=== PATIENT | male | born 1965 | race African-American/Black ===

== ENCOUNTER 2017-03-27 23:41 | Emergency (ER) | payer MEDICARE ==
[~2017-03-27] VITALS: Ht 190.5 cm; Wt 109.0 kg
[~2017-03-27 23:41] MED LIST: BENADRYL; CITA20TA19 PO; DILAUDID; SEROQUEL; TEMA30CA5 PO; VALIUM
[2017-03-28] MEDS ORDERED: TRAMADOL 50MG TABLET PO ONE (02:45)
[2017-03-28 04:46] LABS: BASOPHILS % 0.4 % (0.0-2.0); EOSINOPHILS % 1.8 % (0.0-5.0); HEMOGLOBIN. 15.1 g/dL (14.0-18.0); LYMPHOCYTES % 23.9 % (20.0-50.0); MEAN CORPUSCULAR HEMOGLOBIN 30.2 pg (28.0-32.0); MEAN CORPUSCULAR VOLUME 90.2 fL (80.0-94.0); MEAN PLATELET VOLUME 7.9 fl (7.4-10.4); MONOCYTES % 10.9 % (2.0-8.0); PLATELET 154 x1000/uL (130-400); RED BLOOD CELL COUNT 4.99 mill/uL (4.7-6.1); RED CELL DISTRIBUTION WIDTH 13.7 % (11.6-14.6)
[2017-03-28 04:53] LABS: CHLORIDE 108 mEq/L (98-107)
[2017-03-28 05:02] LABS: CARBON DIOXIDE 29 mEq/L (21-32); ETHANOL BLOOD < 10 mg/dL
[2017-03-28 05:15] LABS: CLARITY URINE CLEAR (CLEAR); COLOR URINE YELLOW (YELLOW); GLUCOSE URINE NEGATIVE (NEGATIVE); KETONES URINE NEGATIVE (NEGATIVE); LEUKOCYTE ESTERASE URINE NEGATIVE (NEGATIVE); NITRITE URINE NEGATIVE (NEGATIVE); OCCULT BLOOD URINE NEGATIVE (NEGATIVE); PH URINE 5.5 (4.5-8.0); PROTEIN URINE NEGATIVE (NEGATIVE); SPECIFIC GRAVITY URINE 1.022 (1.005-1.030)
[2017-03-28 05:37] LABS: *AMPHETAMINES SCREEN URINE NEGATIVE (NEGATIVE); *BARBITURATES SCREEN URINE NEGATIVE (NEGATIVE); *BENZODIAZEPINES SCREEN URINE PRESUMTIVE POSITIVE (NEGATIVE); *COCAINE SCREEN URINE NEGATIVE (NEGATIVE); CANNABINOID URINE SCREEN PRESUMTIVE POSITIVE (NEGATIVE); METHADONE URINE SCREEN NEGATIVE (NEGATIVE); OPIATES URINE SCREEN PRESUMTIVE POSITIVE (NEGATIVE); PHENCYCLIDINE URINE SCREEN NEGATIVE (NEGATIVE)
[2017-03-28] MEDS ORDERED: ACETAMINOPHEN 500MG TABLET PO ONE (14:15)
[2017-03-28] MEDS ORDERED: ACETAMINOPHEN 500MG TABLET PO NR (22:50)
[2017-03-29] MEDS ORDERED: HYDROCODONE/ACETAMINOPHEN 5/325MG TABLET PO ONE (08:00)
[2017-03-29 16:10] VITALS: BP 121/69
== END 2017-03-29 18:49 | disposition home or self-care (01) ==
LOC: ER 03-28 04:14
DX: J06.9 Acute upper respiratory infection, unspecified (principal); R44.0 Auditory hallucinations; G89.29 Other chronic pain; M25.551 Pain in right hip; F25.9 Schizoaffective disorder, unspecified; F17.200 Nicotine dependence, unspecified, uncomplicated; F12.10 Cannabis abuse, uncomplicated; Z96.641 Presence of right artificial hip joint; Z88.0 Allergy status to penicillin; Z98.890 Other specified postprocedural states; Z88.6 Allergy status to analgesic agent; Z88.8 Allergy status to other drugs, medicaments and biological substances
CPT/HCPCS: 36415; 71010; 73502; 80053; 80305; 80307; 80329; 81003; 85025; 99285; G0482

== ENCOUNTER 2017-10-10 21:49 | Emergency (ER) | payer MEDICARE, MEDICAID ==
[~2017-10-10] VITALS: Ht 190.5 cm; Wt 106.0 kg
[2017-10-11] MEDS ORDERED: HYDROCODONE/ACETAMINOPHEN 10/325MG TABLET PO ONE (09:00)
[2017-10-11 10:04] VITALS: BP 121/64
== END 2017-10-11 10:38 | disposition home or self-care (01) ==
LOC: ER 21:49
DX: M25.551 Pain in right hip (principal); G89.29 Other chronic pain; G43.909 Migraine, unspecified, not intractable, without status migrainosus; F31.9 Bipolar disorder, unspecified; I10 Essential (primary) hypertension; F12.10 Cannabis abuse, uncomplicated; F17.200 Nicotine dependence, unspecified, uncomplicated; Z88.0 Allergy status to penicillin; Z88.6 Allergy status to analgesic agent; Z88.8 Allergy status to other drugs, medicaments and biological substances
CPT/HCPCS: 99283; J7030

== ENCOUNTER 2018-01-11 21:17 | Emergency (ER) | payer MEDICARE, MEDICAID ==
[~2018-01-11] VITALS: Ht 190.5 cm; Wt 110.0 kg
[2018-01-11 23:58] LABS: CHLORIDE 109 mEq/L (98-107)
[2018-01-12 01:22] LABS: BASOPHILS % 0.6 % (0.0-2.0); HEMATOCRIT. 50.1 % (42.0-52.0); HEMOGLOBIN. 17.1 g/dL (14.0-18.0); LYMPHOCYTES % 48.1 % (20.0-50.0); MEAN CORPUSCULAR HEMOGLOBIN 30.5 pg (28.0-32.0); MEAN CORPUSCULAR VOLUME 89.4 fL (80.0-94.0); MEAN PLATELET VOLUME 9.2 fl (7.4-10.4); MONOCYTES % 12.7 % (2.0-8.0); NEUTROPHILS % 35.6 % (40.0-76.0); PLATELET 231 x1000/uL (130-400); RED BLOOD CELL COUNT 5.61 mill/uL (4.7-6.1); RED CELL DISTRIBUTION WIDTH 13.9 % (11.6-14.6)
[2018-01-12 01:34] LABS: INR 1.5; PROTHROMBIN TIME 16.1 sec (9.4-11.6)
[2018-01-12 01:57] LABS: CLARITY URINE CLEAR (CLEAR); COLOR URINE DARK YELLOW (YELLOW); KETONES URINE NEGATIVE (NEGATIVE); LEUKOCYTE ESTERASE URINE NEGATIVE (NEGATIVE); NITRITE URINE NEGATIVE (NEGATIVE); OCCULT BLOOD URINE NEGATIVE (NEGATIVE); PROTEIN URINE NEGATIVE (NEGATIVE); SPECIFIC GRAVITY URINE 1.029 (1.005-1.030)
[2018-01-12] MEDS ORDERED: IBUPROFEN 600MG TABLET PO ONE (03:00)
[2018-01-12 04:30] VITALS: BP 129/70
== END 2018-01-12 06:42 | disposition home or self-care (01) ==
LOC: ER 21:17
DX: R10.30 Lower abdominal pain, unspecified (principal); G89.29 Other chronic pain; K59.00 Constipation, unspecified; I69.398 Other sequelae of cerebral infarction; H54.7 Unspecified visual loss; F41.9 Anxiety disorder, unspecified; F20.9 Schizophrenia, unspecified; Z72.0 Tobacco use; F12.90 Cannabis use, unspecified, uncomplicated; Z96.643 Presence of artificial hip joint, bilateral; Z88.0 Allergy status to penicillin; Z88.8 Allergy status to other drugs, medicaments and biological substances; Z79.899 Other long term (current) drug therapy
CPT/HCPCS: 36415; 74176; 80053; 81003; 83690; 85025; 85610; 99285

== ENCOUNTER 2018-01-13 02:10 | Emergency (ER) | payer MEDICARE, MEDICAID ==
[~2018-01-13] VITALS: Ht 190.5 cm; Wt 109.0 kg
[2018-01-13] MEDS ORDERED: DIPHENHYDRAMINE 25MG CAPSULE PO ONE (04:45)
[2018-01-13] MEDS ORDERED: MORPHINE SULFATE 10 MG/ML CPJ IM ONE (04:45)
[2018-01-13 06:10] VITALS: BP 134/85
== END 2018-01-13 06:20 | disposition home or self-care (01) ==
LOC: ER 02:10
DX: M54.5 Low back pain (principal); G89.29 Other chronic pain; M25.551 Pain in right hip; M25.552 Pain in left hip; W10.9XXA Fall (on) (from) unspecified stairs and steps, initial encounter; Y93.89 Activity, other specified; Y92.89 Other specified places as the place of occurrence of the external cause; J44.9 Chronic obstructive pulmonary disease, unspecified; F17.210 Nicotine dependence, cigarettes, uncomplicated; H54.8 Legal blindness, as defined in USA; Z96.643 Presence of artificial hip joint, bilateral; Z88.0 Allergy status to penicillin; Z79.899 Other long term (current) drug therapy; Z88.8 Allergy status to other drugs, medicaments and biological substances
CPT/HCPCS: 96372; 99283; J2270; Q0163

== ENCOUNTER 2018-03-30 23:27 | Emergency (ER) | payer MEDICARE, MEDICAID ==
[~2018-03-30] VITALS: Ht 190.5 cm; Wt 114.0 kg
[2018-03-30 23:43] VITALS: BP 122/79
== END 2018-03-31 03:15 | disposition left against medical advice (07) ==
LOC: ER 23:27
DX: R51 Headache (principal); Z53.21 Procedure and treatment not carried out due to patient leaving prior to being seen by health care provider

== ENCOUNTER 2018-04-14 05:55 | Emergency (ER) | payer MEDICAID, MEDICARE ==
[~2018-04-14] VITALS: Ht 190.5 cm; Wt 113.0 kg
[2018-04-14] MEDS ORDERED: ONDANSETRON 4MG ODT PO ONE (06:30)
[2018-04-14] MEDS ORDERED: MORPHINE SULFATE 10 MG/ML CPJ IM ONE (06:30)
[2018-04-14 07:12] VITALS: BP 121/77
== END 2018-04-14 07:54 | disposition home or self-care (01) ==
LOC: ER 07:26
DX: G43.909 Migraine, unspecified, not intractable, without status migrainosus (principal); J06.9 Acute upper respiratory infection, unspecified; G89.29 Other chronic pain; M25.552 Pain in left hip; M25.551 Pain in right hip; F20.9 Schizophrenia, unspecified; F12.10 Cannabis abuse, uncomplicated; Z88.0 Allergy status to penicillin; Z88.8 Allergy status to other drugs, medicaments and biological substances; Z88.1 Allergy status to other antibiotic agents; Z88.6 Allergy status to analgesic agent
CPT/HCPCS: 71045; 96372; 99283; J2270; Q0162

== ENCOUNTER 2018-09-11 00:22 | Emergency (ER) | payer MEDICARE, MEDICAID ==
[~2018-09-11] VITALS: Ht 190.5 cm; Wt 114.0 kg
[2018-09-11] MEDS ORDERED: DIPHENHYDRAMINE 50MG/ML VIAL IM ONE (01:45)
[2018-09-11] MEDS ORDERED: MORPHINE SULFATE 10 MG/ML CPJ IM ONE (01:45)
[2018-09-11 03:20] VITALS: BP 115/62
== END 2018-09-11 07:15 | disposition left against medical advice (07) ==
LOC: ER 02:10
DX: G89.29 Other chronic pain (principal); M25.551 Pain in right hip; G43.909 Migraine, unspecified, not intractable, without status migrainosus; G44.89 Other headache syndrome; F31.9 Bipolar disorder, unspecified; F12.10 Cannabis abuse, uncomplicated; F17.200 Nicotine dependence, unspecified, uncomplicated; Z79.899 Other long term (current) drug therapy; Z88.8 Allergy status to other drugs, medicaments and biological substances; Z88.1 Allergy status to other antibiotic agents; Z88.0 Allergy status to penicillin; Z88.6 Allergy status to analgesic agent; Z87.19 Personal history of other diseases of the digestive system; Z96.643 Presence of artificial hip joint, bilateral
CPT/HCPCS: 96372; 99283; J1200; J2270

== ENCOUNTER 2018-10-14 00:09 | Emergency (ER) | payer MEDICARE, MEDICAID ==
[~2018-10-14] VITALS: Ht 190.5 cm; Wt 113.0 kg
[2018-10-14] MEDS ORDERED: IBUPROFEN 400MG TABLET PO ONE (01:00)
[2018-10-14] MEDS ORDERED: HYDROCODONE/ACETAMINOPHEN 5/325MG TABLET PO ONE (01:00)
[2018-10-14 11:23] VITALS: BP 115/57
== END 2018-10-14 13:37 | disposition home or self-care (01) ==
LOC: ER 00:09
DX: G43.909 Migraine, unspecified, not intractable, without status migrainosus (principal); G89.29 Other chronic pain; M25.551 Pain in right hip; F17.200 Nicotine dependence, unspecified, uncomplicated; F12.10 Cannabis abuse, uncomplicated; H54.8 Legal blindness, as defined in USA; Z88.6 Allergy status to analgesic agent; Z88.0 Allergy status to penicillin; Z96.641 Presence of right artificial hip joint; Z88.8 Allergy status to other drugs, medicaments and biological substances; Z86.73 Personal history of transient ischemic attack (TIA), and cerebral infarction without residual deficits
CPT/HCPCS: 99283

== ENCOUNTER 2018-10-20 23:58 | Inpatient (IN) | payer MEDICARE, MEDICAID ==
[~2018-10-20] VITALS: Ht 190.5 cm; Wt 112.0 kg
[2018-10-21] MEDS ORDERED: HYDROCODONE/ACETAMINOPHEN 5/325MG TABLET PO STA (02:07)
[2018-10-21] MEDS ORDERED: MORPHINE SULFATE 4 MG/ML CPJ (NOT FOR IM USE) IV STA (03:18)
[2018-10-21] MEDS ORDERED: ONDANSETRON HCL 4MG/2ML INJ IV STA (03:18)
[2018-10-21 03:32] LABS: HEMATOCRIT. 49.7 % (42.0-52.0); HEMOGLOBIN. 16.5 g/dL (14.0-18.0); MEAN CORPUSCULAR HEMOGLOBIN 29.8 pg (28.0-32.0); MEAN CORPUSCULAR VOLUME 89.7 fL (80.0-94.0); MEAN PLATELET VOLUME 7.7 fl (7.4-10.4); PLATELET 213 x1000/uL (130-400); RED BLOOD CELL COUNT 5.54 mill/uL (4.7-6.1); RED CELL DISTRIBUTION WIDTH 14.3 % (11.6-14.6)
[2018-10-21 03:49] LABS: CHLORIDE 110 mEq/L (98-107)
[2018-10-21 04:40] LABS: NUCLEATED RED BLOOD CELLS 1 /100 WBC; PLATELET ESTIMATE NORMAL
[2018-10-21] MEDS ORDERED: FENTANYL CITRATE/PF 50MCG/ML 2ML VIAL IV ONE (05:15)
[2018-10-21] MEDS ORDERED: HYDROCODONE/ACETAMINOPHEN 5/325MG TABLET PO PRN (09:00)
[2018-10-21 12:30] VITALS: BP 118/77
[2018-10-21] MEDS ORDERED: DIVA500T3 PO (12:55)
[2018-10-21] MEDS ORDERED: DIAZ10TA4 PO (12:55)
[2018-10-21] MEDS ORDERED: OXYC-662 PO (12:57)
[2018-10-21] MEDS ORDERED: QUET400T PO (12:57)
[2018-10-21] MEDS ORDERED: HYDR2TAB4 PO (13:00)
[2018-10-21] MEDS ORDERED: ONDANSETRON HCL 4MG/2ML INJ IV PRN (13:00)
[2018-10-21] MEDS ORDERED: IPRATROPIUM/ALBUTEROL 0.5-3(2.5)MG/3ML NEB INH PRN (13:00)
[2018-10-21] MEDS ORDERED: GUAIFENESIN 200MG/10ML SUGAR FREE UDC PO PRN (13:00)
[2018-10-21] MEDS ORDERED: DOCUSATE SODIUM 100MG CAPSULE PO PRN (13:00)
[2018-10-21] MEDS ORDERED: ACETAMINOPHEN 325MG TABLET PO PRN (13:00)
[2018-10-21] MEDS ORDERED: TRAMADOL 50MG TABLET PO PRN (13:00)
[2018-10-21] MEDS ORDERED: CLONIDINE 0.1MG TABLET PO PRN (13:00)
[2018-10-21] MEDS ORDERED: MAGNESIUM/ALUMINUM HYDROXIDE/SIMETHICONE 30ML UDC PO PRN (13:00)
[2018-10-21] MEDS ORDERED: B50 PO (13:01)
[2018-10-21 13:14] VITALS: BP 118/77
[2018-10-21] MEDS ORDERED: ENOXAPARIN 40MG/0.4ML SYR SUBCUT SCH (14:00)
[2018-10-21] MEDS: CITALOPRAM HYDROBROMIDE 20MG TABLET PO SCH (15:16)
[2018-10-21] MEDS: HYDROMORPHONE HCL/PF 2MG/ML CPJ IM PRN ×2 (15:16→21:39)
[2018-10-21] MEDS: DIPHENHYDRAMINE 50MG/ML VIAL IM PRN ×2 (15:16→21:47)
[2018-10-21] MEDS: DIVALPROEX SODIUM 500MG ER TABLET PO SCH (15:16)
[2018-10-21 16:00] VITALS: BP 117/62
[2018-10-21] MEDS: LIDOCAINE 5% PATCH TOP SCH (19:03)
[2018-10-21 19:49] LABS: *BARBITURATES SCREEN URINE NEGATIVE (NEGATIVE); *BENZODIAZEPINES SCREEN URINE NEGATIVE (NEGATIVE)
[2018-10-21 19:50] LABS: *AMPHETAMINES SCREEN URINE NEGATIVE (NEGATIVE); *COCAINE SCREEN URINE NEGATIVE (NEGATIVE); METHADONE URINE SCREEN NEGATIVE (NEGATIVE); OPIATES URINE SCREEN PRESUMTIVE POSITIVE (NEGATIVE); PHENCYCLIDINE URINE SCREEN NEGATIVE (NEGATIVE)
[2018-10-21 19:51] LABS: CANNABINOID URINE SCREEN PRESUMTIVE POSITIVE (NEGATIVE)
[2018-10-21 20:00] VITALS: BP 122/66
[2018-10-21] MEDS ORDERED: QUETIAPINE FUMARATE 100MG TABLET PO SCH (21:00)
[2018-10-21] MEDS: DIAZEPAM 5 MG TABLET PO SCH (21:38)
[2018-10-22] VITALS: BP 126/64
[2018-10-22] MEDS: DIPHENHYDRAMINE 50MG/ML VIAL IM PRN (03:45)
[2018-10-22] MEDS: HYDROMORPHONE HCL/PF 2MG/ML CPJ IM PRN (03:45)
[2018-10-22 03:54] VITALS: BP 111/56
[2018-10-22 07:03] LABS: CHLORIDE 109 mEq/L (98-107)
[2018-10-22 07:14] LABS: BASOPHILS % 0.6 % (0.0-2.0); EOSINOPHILS % 4.1 % (0.0-5.0); HEMATOCRIT. 47.4 % (42.0-52.0); HEMOGLOBIN. 15.9 g/dL (14.0-18.0); LYMPHOCYTES % 52.4 % (20.0-50.0); MEAN CORPUSCULAR HEMOGLOBIN 29.8 pg (28.0-32.0); MEAN CORPUSCULAR VOLUME 88.9 fL (80.0-94.0); MEAN PLATELET VOLUME 7.8 fl (7.4-10.4); MONOCYTES % 14.8 % (2.0-8.0); NEUTROPHILS % 28.1 % (40.0-76.0); PLATELET 197 x1000/uL (130-400); RED BLOOD CELL COUNT 5.33 mill/uL (4.7-6.1); RED CELL DISTRIBUTION WIDTH 14.3 % (11.6-14.6)
[2018-10-22 07:19] LABS: LDL CHOLESTEROL 113 mg/dL (5-100)
[2018-10-22 07:21] LABS: HDL CHOLESTEROL 41 mg/dL (40-59)
[2018-10-22 08:00] VITALS: BP_SYST 130; BP_SYST 139; BP_SYST 161; BP_DIAS 67; BP_DIAS 76; BP_DIAS 91
[2018-10-22] MEDS: DIVALPROEX SODIUM 500MG ER TABLET PO SCH (08:14)
[2018-10-22] MEDS: CITALOPRAM HYDROBROMIDE 20MG TABLET PO SCH (08:14)
[2018-10-22] MEDS: DIAZEPAM 5 MG TABLET PO SCH (08:14)
[2018-10-22] MEDS: LIDOCAINE 5% PATCH TOP SCH ×2 (08:15→08:17)
[2018-10-22] MEDS ORDERED: HYDROCODONE/ACETAMINOPHEN 10/325MG TABLET PO PRN (10:15)
[2018-10-22] MEDS ORDERED: DIPHENHYDRAMINE 50MG CAPSULE PO PRN (10:15)
[2018-10-22 12:00] VITALS: BP 133/76
[2018-10-22] MEDS ORDERED: OXYCODONE HCL 5MG TABLET PO NR (13:30)
[2018-10-22 15:05] VITALS: BP 133/76
== END 2018-10-22 15:23 | disposition home or self-care (01) | DRG 74 ==
LOC: ER 23:58 → 8WST 10-21 05:19 → EDBEDREQ 10-21 05:21 → EDBEDREQTM 10-21 05:21 → ENRESERV 10-21 11:01 → 8WST 10-21 12:27
PROVIDERS: ADMIT Family Medicine Adult Medicine; ATTEND Family Medicine Adult Medicine
DX: G90.8 Other disorders of autonomic nervous system (principal); F11.20 Opioid dependence, uncomplicated; R55 Syncope and collapse; M25.551 Pain in right hip; G89.4 Chronic pain syndrome; G43.909 Migraine, unspecified, not intractable, without status migrainosus; H54.40 Blindness, one eye, unspecified eye; Z96.653 Presence of artificial knee joint, bilateral; Z96.643 Presence of artificial hip joint, bilateral; R07.89 Other chest pain; F31.9 Bipolar disorder, unspecified; F12.90 Cannabis use, unspecified, uncomplicated; F25.9 Schizoaffective disorder, unspecified; Z88.0 Allergy status to penicillin; Z88.8 Allergy status to other drugs, medicaments and biological substances; Z72.0 Tobacco use; Z76.5 Malingerer [conscious simulation]; Z79.899 Other long term (current) drug therapy
CPT/HCPCS: 36415; 71045; 73502; 80048; 80061; 80305; 83880; 84443; 84484; 93005; 93306; 93880; 96374; 96375; 97162; 97166; 99285; J1170; J1200; J1650; J2270; J2405; J3010; Q0163

== ENCOUNTER 2018-11-02 10:06 | Emergency (ER) | payer MEDICARE, MEDICAID ==
[~2018-11-02] VITALS: Ht 177.8 cm; Wt 90.0 kg
[~2018-11-02 10:06] MED LIST changes: +B50 PO; -BENADRYL; +DIAZ10TA4 PO; -DILAUDID; +DIVA500T3 PO; +HYDR2TAB4 PO; +OXYC-662 PO; +QUET400T PO; -SEROQUEL; -VALIUM
[2018-11-02] MEDS ORDERED: HYDROCODONE/ACETAMINOPHEN 5/325MG TABLET PO ONE (12:00)
[2018-11-02 13:15] LABS: CLARITY URINE CLEAR (CLEAR); COLOR URINE DARK YELLOW (YELLOW); KETONES URINE TRACE (NEGATIVE); LEUKOCYTE ESTERASE URINE TRACE (NEGATIVE); NITRITE URINE NEGATIVE (NEGATIVE); OCCULT BLOOD URINE NEGATIVE (NEGATIVE); PH URINE 5.5 (4.5-8.0); PROTEIN URINE TRACE (NEGATIVE); SPECIFIC GRAVITY URINE 1.036 (1.005-1.030)
[2018-11-02 13:37] LABS: *AMPHETAMINES SCREEN URINE NEGATIVE (NEGATIVE); *BENZODIAZEPINES SCREEN URINE PRESUMTIVE POSITIVE (NEGATIVE); *COCAINE SCREEN URINE PRESUMTIVE POSITIVE (NEGATIVE); CANNABINOID URINE SCREEN PRESUMTIVE POSITIVE (NEGATIVE); METHADONE URINE SCREEN NEGATIVE (NEGATIVE); OPIATES URINE SCREEN PRESUMTIVE POSITIVE (NEGATIVE); PHENCYCLIDINE URINE SCREEN NEGATIVE (NEGATIVE)
[2018-11-02 13:39] LABS: HEMATOCRIT. 46.8 % (42.0-52.0); HEMOGLOBIN. 15.7 g/dL (14.0-18.0); MEAN CORPUSCULAR HEMOGLOBIN 29.9 pg (28.0-32.0); MEAN CORPUSCULAR VOLUME 89.1 fL (80.0-94.0); MEAN PLATELET VOLUME 8.4 fl (7.4-10.4); PLATELET 167 x1000/uL (130-400); RED BLOOD CELL COUNT 5.25 mill/uL (4.7-6.1); RED CELL DISTRIBUTION WIDTH 14.6 % (11.6-14.6)
[2018-11-02 13:41] LABS: *BARBITURATES SCREEN URINE NEGATIVE (NEGATIVE)
[2018-11-02 13:44] LABS: CHLORIDE 112 mEq/L (98-107)
[2018-11-02 13:49] LABS: ETHANOL BLOOD < 10 mg/dL
[2018-11-02 14:21] LABS: PLATELET ESTIMATE NORMAL
[2018-11-03] MEDS ORDERED: HYDROCODONE/ACETAMINOPHEN 10/325MG TABLET PO ONE ×3 (10:30→22:15)
[2018-11-04 00:20] VITALS: BP 143/83
== END 2018-11-04 00:36 ==
LOC: ER 10:06
DX: M25.551 Pain in right hip (principal); E87.8 Other disorders of electrolyte and fluid balance, not elsewhere classified; R45.851 Suicidal ideations; F15.129 Other stimulant abuse with intoxication, unspecified; F14.129 Cocaine abuse with intoxication, unspecified; F12.129 Cannabis abuse with intoxication, unspecified; F11.129 Opioid abuse with intoxication, unspecified; E87.6 Hypokalemia
CPT/HCPCS: 36415; 73502; 73552; 80305; 80307; 80329; 99285

== ENCOUNTER 2019-01-16 04:11 | Emergency (ER) | payer MEDICARE, MEDICAID ==
[~2019-01-16] VITALS: Ht 188 cm; Wt 100.0 kg
[2019-01-16] MEDS ORDERED: TRAMADOL 50MG TABLET PO ONE (06:30)
[2019-01-16 08:48] VITALS: BP 103/59
== END 2019-01-16 08:56 | disposition home or self-care (01) ==
LOC: ER 04:11
DX: M25.552 Pain in left hip (principal); M25.551 Pain in right hip; J44.9 Chronic obstructive pulmonary disease, unspecified; F31.9 Bipolar disorder, unspecified; G43.909 Migraine, unspecified, not intractable, without status migrainosus; H54.7 Unspecified visual loss; F12.10 Cannabis abuse, uncomplicated; Z86.73 Personal history of transient ischemic attack (TIA), and cerebral infarction without residual deficits; Z88.0 Allergy status to penicillin; Z88.8 Allergy status to other drugs, medicaments and biological substances; Z96.643 Presence of artificial hip joint, bilateral; W01.0XXA Fall on same level from slipping, tripping and stumbling without subsequent striking against object, initial encounter; Y93.89 Activity, other specified; Y92.488 Other paved roadways as the place of occurrence of the external cause
CPT/HCPCS: 73521; 73552; 99283

== ENCOUNTER 2019-02-15 05:52 | Emergency (ER) | payer MEDICARE, MEDICAID ==
[~2019-02-15] VITALS: Ht 190.5 cm; Wt 109.0 kg
[2019-02-15] MEDS ORDERED: ONDANSETRON 4MG/5ML UDC PO ONE (06:30)
[2019-02-15] MEDS ORDERED: OXYCODONE HCL/ACETAMINOPHEN 5/325MG TABLET PO ONE (06:30)
[2019-02-15 08:00] VITALS: BP 142/80
== END 2019-02-15 08:10 | disposition home or self-care (01) ==
LOC: ER 05:52
DX: M25.551 Pain in right hip (principal); H10.023 Other mucopurulent conjunctivitis, bilateral; F20.9 Schizophrenia, unspecified; F31.9 Bipolar disorder, unspecified; F12.10 Cannabis abuse, uncomplicated; G43.909 Migraine, unspecified, not intractable, without status migrainosus; H54.7 Unspecified visual loss; Z96.643 Presence of artificial hip joint, bilateral; Z88.8 Allergy status to other drugs, medicaments and biological substances
CPT/HCPCS: 73502; 99283

== ENCOUNTER 2019-04-26 00:58 | Emergency (ER) | payer MEDICAID, MEDICARE ==
[~2019-04-26] VITALS: Ht 190.5 cm; Wt 114.0 kg
[2019-04-26] MEDS: LIDOCAINE 5% PATCH TOP SCH ×2 (04:16→04:17)
[2019-04-26 04:54] VITALS: BP 119/69
== END 2019-04-26 05:00 | disposition home or self-care (01) ==
LOC: ER 00:58
DX: G89.29 Other chronic pain (principal); M54.9 Dorsalgia, unspecified; M79.606 Pain in leg, unspecified; Z88.8 Allergy status to other drugs, medicaments and biological substances; H54.7 Unspecified visual loss; F17.210 Nicotine dependence, cigarettes, uncomplicated; F12.90 Cannabis use, unspecified, uncomplicated
CPT/HCPCS: 82962; 99283

== ENCOUNTER 2020-08-19 02:47 | Emergency (ER) | payer MEDICARE, MEDICAID ==
[~2020-08-19] VITALS: Ht 188 cm; Wt 113.0 kg
[2020-08-19] MEDS ORDERED: ACETAMINOPHEN 325MG TABLET PO ONE (06:30)
[2020-08-19 07:35] VITALS: BP 127/82
== END 2020-08-19 07:36 | disposition home or self-care (01) ==
LOC: ER 02:47
DX: S93.491A Sprain of other ligament of right ankle, initial encounter (principal); M54.2 Cervicalgia; H54.7 Unspecified visual loss; F31.9 Bipolar disorder, unspecified; G43.909 Migraine, unspecified, not intractable, without status migrainosus; F12.10 Cannabis abuse, uncomplicated; Z88.0 Allergy status to penicillin; W01.0XXA Fall on same level from slipping, tripping and stumbling without subsequent striking against object, initial encounter; Y93.89 Activity, other specified; Y92.488 Other paved roadways as the place of occurrence of the external cause
CPT/HCPCS: 73610; 99283

== ENCOUNTER 2020-12-02 13:44 | Emergency (ER) | payer MEDICARE, MEDICAID ==
[~2020-12-02] VITALS: Ht 190.5 cm; Wt 105.0 kg
[2020-12-02] MEDS ORDERED: TRAMADOL 50MG TABLET PO ONE (15:30)
[2020-12-02 16:58] LABS: CLARITY URINE CLOUDY (CLEAR); COLOR URINE YELLOW (YELLOW); KETONES URINE NEGATIVE (NEGATIVE); LEUKOCYTE ESTERASE URINE NEGATIVE (NEGATIVE); NITRITE URINE NEGATIVE (NEGATIVE); OCCULT BLOOD URINE NEGATIVE (NEGATIVE); PH URINE 8.5 (4.5-8.0); PROTEIN URINE NEGATIVE (NEGATIVE); SPECIFIC GRAVITY URINE 1.025 (1.005-1.030)
[2020-12-02 17:30] LABS: *AMPHETAMINES SCREEN URINE NEGATIVE (NEGATIVE); *BARBITURATES SCREEN URINE NEGATIVE (NEGATIVE); *BENZODIAZEPINES SCREEN URINE PRESUMTIVE POSITIVE (NEGATIVE); *COCAINE SCREEN URINE PRESUMTIVE POSITIVE (NEGATIVE)
[2020-12-02 17:31] LABS: CANNABINOID URINE SCREEN PRESUMTIVE POSITIVE (NEGATIVE); METHADONE URINE SCREEN NEGATIVE (NEGATIVE); OPIATES URINE SCREEN PRESUMTIVE POSITIVE (NEGATIVE); PHENCYCLIDINE URINE SCREEN NEGATIVE (NEGATIVE)
[2020-12-02 17:59] LABS: BASOPHILS % 0.3 % (0.0-2.0); EOSINOPHILS % 2.1 % (0.0-5.0); HEMATOCRIT. 44.9 % (42.0-52.0); HEMOGLOBIN. 14.9 g/dL (14.0-18.0); LYMPHOCYTES % 26.2 % (20.0-50.0); MEAN CORPUSCULAR HEMOGLOBIN 29.3 pg (28.0-32.0); MEAN CORPUSCULAR VOLUME 88.4 fL (80.0-94.0); MONOCYTES % 12.1 % (2.0-8.0); NEUTROPHILS % 59.3 % (40.0-76.0); PLATELET 225 x1000/uL (130-400); RED BLOOD CELL COUNT 5.08 mill/uL (4.7-6.1); RED CELL DISTRIBUTION WIDTH 13.9 % (11.6-14.6)
[2020-12-02 18:08] LABS: CHLORIDE 107 mEq/L (98-107)
[2020-12-02 18:12] LABS: ETHANOL BLOOD < 10 mg/dL
[2020-12-03] MEDS ORDERED: TRAMADOL 50MG TABLET PO ONE (18:15)
[2020-12-04] MEDS ORDERED: HYDR-4350 MT (11:38)
[2020-12-04] MEDS ORDERED: HYDROCODONE/ACETAMINOPHEN 10/325MG TABLET PO ONE (11:45)
[2020-12-04 14:09] VITALS: BP 112/83
== END 2020-12-04 14:45 | disposition home or self-care (01) ==
LOC: ER 13:54
DX: G89.29 Other chronic pain (principal); M54.5 Low back pain; M25.571 Pain in right ankle and joints of right foot; R45.851 Suicidal ideations; F32.9 Major depressive disorder, single episode, unspecified; R26.9 Unspecified abnormalities of gait and mobility; H54.7 Unspecified visual loss; G43.909 Migraine, unspecified, not intractable, without status migrainosus; J44.9 Chronic obstructive pulmonary disease, unspecified; F43.10 Post-traumatic stress disorder, unspecified; Z20.822 Contact with and (suspected) exposure to COVID-19; Z88.0 Allergy status to penicillin; Z86.73 Personal history of transient ischemic attack (TIA), and cerebral infarction without residual deficits; Z91.81 History of falling; Z98.890 Other specified postprocedural states; Z87.81 Personal history of (healed) traumatic fracture; Z75.1 Person awaiting admission to adequate facility elsewhere
CPT/HCPCS: 36415; 72100; 73610; 73630; 80053; 80305; 80307; 80320; 80329; 81003; 85025; 93005; 99285; C9803; U0003; G0480

== ENCOUNTER 2021-11-13 03:30 | Emergency (ER) | payer MEDICARE, MEDICAID ==
[~2021-11-13] VITALS: Ht 185.4 cm; Wt 100.0 kg
[~2021-11-13 03:30] MED LIST changes: +HYDR-4350 MT
[2021-11-13] MEDS ORDERED: HYDROCODONE/ACETAMINOPHEN 5/325MG TABLET PO ONE (04:30)
[2021-11-13 04:34] VITALS: BP 168/92
[2021-11-13 05:12] LABS: CHLORIDE 106 mEq/L (98-107)
[2021-11-13 05:54] LABS: BASOPHILS % 0.5 % (0.0-2.0); EOSINOPHILS % 1.8 % (0.0-5.0); HEMATOCRIT. 45.5 % (42.0-52.0); HEMOGLOBIN. 15.4 g/dL (14.0-18.0); LYMPHOCYTES % 37.6 % (20.0-50.0); MEAN CORPUSCULAR HEMOGLOBIN 30.3 pg (28.0-32.0); MEAN CORPUSCULAR VOLUME 89.4 fL (80.0-94.0); MEAN PLATELET VOLUME 7.9 fl (7.4-10.4); MONOCYTES % 11.1 % (2.0-8.0); PLATELET 188 x1000/uL (130-400); RED BLOOD CELL COUNT 5.09 mill/uL (4.7-6.1)
[2021-11-13] MEDS ORDERED: BACL20TA MT (06:07)
== END 2021-11-13 06:47 | disposition home or self-care (01) ==
LOC: ER 03:30
DX: R42 Dizziness and giddiness (principal); G89.29 Other chronic pain; M54.50 Low back pain, unspecified; F14.10 Cocaine abuse, uncomplicated; F15.10 Other stimulant abuse, uncomplicated; F11.10 Opioid abuse, uncomplicated; Z88.8 Allergy status to other drugs, medicaments and biological substances; Z79.899 Other long term (current) drug therapy; Z86.73 Personal history of transient ischemic attack (TIA), and cerebral infarction without residual deficits; Z86.59 Personal history of other mental and behavioral disorders
CPT/HCPCS: 36415; 71045; 80053; 84484; 85025; 93005; 99285

== ENCOUNTER 2022-03-02 12:04 | Emergency (ER) | payer MEDICARE, MEDICAID ==
[~2022-03-02] VITALS: Ht 182.9 cm; Wt 90.0 kg
[~2022-03-02 12:04] MED LIST changes: +BACL20TA MT
[2022-03-02 12:09] VITALS: BP 163/93
[2022-03-02] MEDS ORDERED: ACETAMINOPHEN 325MG TABLET PO ONE (14:00)
== END 2022-03-02 16:59 | disposition home or self-care (01) ==
LOC: ER 12:04
DX: M25.571 Pain in right ankle and joints of right foot (principal); M54.50 Low back pain, unspecified; M25.551 Pain in right hip; F31.9 Bipolar disorder, unspecified; G43.909 Migraine, unspecified, not intractable, without status migrainosus; H54.7 Unspecified visual loss; Z87.81 Personal history of (healed) traumatic fracture; Z88.8 Allergy status to other drugs, medicaments and biological substances; Z88.6 Allergy status to analgesic agent; W01.0XXA Fall on same level from slipping, tripping and stumbling without subsequent striking against object, initial encounter; Y93.89 Activity, other specified; Y92.89 Other specified places as the place of occurrence of the external cause
CPT/HCPCS: 72100; 73502; 73610; 99284